=== PATIENT | female | born 2000 | race Hispanic/Latino ===

== ENCOUNTER 2023-04-22 05:31 | Observation (INO) | payer BC ==
[~2023-04-22] VITALS: Ht 154.9 cm; Wt 59.0 kg
[2023-04-22 05:41] VITALS: BP 107/72; PULSE 71; RESP 20
[2023-04-22] MEDS: LACTATED RINGERS 1000ML IV SCH ×3 (06:55→08:21)
[2023-04-22] MEDS ORDERED: TERBUTALINE SULFATE VIAL 1MG/ML SQ SCH (07:00)
[2023-04-22 07:01] LABS: APPEARANCE,URINE CLEAR (CLEAR); BILIRUBIN,URINE NEGATIVE (NEGATIVE); GLUCOSE, URINE (UA) NEGATIVE (NEGATIVE); KETONES,URINE NEGATIVE (NEGATIVE); LEUKOCYTE ESTERASE ,URINE 250 Leu/uL (NEGATIVE); NITRATE,URINE NEGATIVE (NEGATIVE); OCCULT BLOOD,URINE NEGATIVE (NEGATIVE); PROTEIN,URINE 20 mg/dL (NEGATIVE); UROBILINOGEN,URINE 0.2 mg/dL (0.2-1.0)
[2023-04-22] MEDS: TERBUTALINE SULFATE VIAL 1MG/ML SQ ONE ×2 (07:04→07:05)
[2023-04-22 07:12] LABS: ADD UA MICROSCOPIC YES; COLOR,URINE YELLOW (YELLOW)
[2023-04-22 07:14] LABS: BACTERIA,URINE RARE /HPF (None Seen); MUCUS,URINE RARE LPF (None Seen); RBC,URINE 0-1 /HPF (0-1); SQUAMOUS EPITHELIAL CELL,UR FEW /HPF (0-2)
== END 2023-04-22 09:00 | disposition home or self-care (01) ==
LOC: EDH 05:31 → LDH 05:32
PROVIDERS: ADMIT Obstetrics & Gynecology; ATTEND Obstetrics & Gynecology
DX: O62.9 Abnormality of forces of labor, unspecified (principal); Z3A.34 34 weeks gestation of pregnancy
CPT/HCPCS: 96372; 96360; 87077; 87088; 87186; 81001; G0378 ×3; G0379; J3105

== ENCOUNTER 2023-05-12 15:23 | Observation (INO) | payer BC ==
[2023-05-12 16:15] VITALS: BP 124/75; PULSE 80; RESP 18
[2023-05-12] MEDS ORDERED: 0.9%NACL 1000ML 1,000 ML IV SCH (17:00)
[2023-05-12] MEDS ORDERED: AZITHROMYCIN 250 MG TABLET PO ONE ×2 (17:00→18:30)
[2023-05-12 17:27] LABS: BASOPHILS # (AUTO) 0.02 K/uL (0.00-0.20); BASOPHILS % (AUTO) 0.3 % (0.0-5.0); HEMATOCRIT 22.1 % (36-48); IMMATURE GRANULOCYTE ABSOLUTE 0.09 K/uL (0-1); LYMPHOCYTES # (AUTO) 1.6 K/uL (1.0-4.8); LYMPHOCYTES % (AUTO) 22.7 % (21.0-51.0); MEAN CORPUSCULAR HEMOGLOBIN 20.3 pg (27.0-33.0); MEAN CORPUSCULAR HGB CONC 29.4 g/dL (32.0-36.0); MEAN CORPUSCULAR VOLUME 69.1 fL (79-99); MONOCYTES # (AUTO) 0.7 K/uL (0.1-1.0); MONOCYTES % (AUTO) 9.2 % (3.0-13.0); NEUTROPHILS # (AUTO) 4.7 K/uL (1.8-7.7); NEUTROPHILS % (AUTO) 66.5 % (40.0-77.0); NUCLEATED RED BLOOD CELLS 3.7 % (0.0-0.19); PLATELET COUNT (AUTO) 323 K/uL (130-400); RED CELL DISTRIBUTION WIDTH 18.1 % (11.0-15.5)
[2023-05-12 19:23] VITALS: BP 103/58; PULSE 62; RESP 20
[2023-05-12 19:42] VITALS: BP 111/75; PULSE 77; RESP 20
[2023-05-12 19:57] VITALS: BP 113/78; PULSE 71; RESP 20
[2023-05-12] MEDS ORDERED: PREN1TAB80 PO (20:10)
[2023-05-12] MEDS: TERBUTALINE SULFATE VIAL 1MG/ML SQ PRN ×2 (20:16→20:58)
[2023-05-12 23:15] VITALS: BP 112/78; PULSE 88; RESP 20
[2023-05-12 23:53] VITALS: BP 119/73; PULSE 82; RESP 20
[2023-05-13 00:16] VITALS: BP 119/66; PULSE 81; RESP 20
[2023-05-13 00:31] VITALS: BP 117/66; PULSE 75; RESP 20
[2023-05-13 03:17] VITALS: BP 120/62; PULSE 58; RESP 20
[2023-05-13 05:46] LABS: HEMATOCRIT 26.7 % (36-48)
[2023-05-13 07:42] VITALS: BP 108/57; PULSE 75; RESP 18
== END 2023-05-13 09:50 | disposition home or self-care (01) ==
LOC: WSH 15:23 → LDH 15:23 → UNDOADMOB 15:23
PROVIDERS: ADMIT Obstetrics & Gynecology; ATTEND Obstetrics & Gynecology
DX: O99.013 Anemia complicating pregnancy, third trimester (principal); D64.9 Anemia, unspecified; Z3A.37 37 weeks gestation of pregnancy
CPT/HCPCS: 96372; 96360; 96361 ×3; 36430 ×2; 85025; 86850; 86900; 86901; 86923 ×2; 36415 ×2; 85014; 85018; G0378 ×11; P9016 ×2; J3105

== ENCOUNTER 2023-05-20 01:45 | Observation (INO) | payer BC ==
[~2023-05-20] VITALS: Ht 154.9 cm; Wt 61.7 kg
[~2023-05-20 01:45] MED LIST: PREN1TAB80 PO
[2023-05-20 01:47] VITALS: BP 128/82; PULSE 79; RESP 18
[2023-05-20] MEDS ORDERED: LACTATED RINGERS 1000ML IV SCH (03:30)
[2023-05-20 03:49] LABS: APPEARANCE,URINE CLEAR (CLEAR); BILIRUBIN,URINE NEGATIVE (NEGATIVE); COLOR,URINE YELLOW (YELLOW); GLUCOSE, URINE (UA) NEGATIVE (NEGATIVE); KETONES,URINE NEGATIVE (NEGATIVE); LEUKOCYTE ESTERASE ,URINE 250 Leu/uL (NEGATIVE); NITRATE,URINE NEGATIVE (NEGATIVE); OCCULT BLOOD,URINE NEGATIVE (NEGATIVE); PH,URINE 6.5 (5.0-8.0); PROTEIN,URINE 70 mg/dL (NEGATIVE)
[2023-05-20 03:53] LABS: ADD UA MICROSCOPIC YES
[2023-05-20 04:08] LABS: HEMATOCRIT 29.3 % (36-48); MEAN CORPUSCULAR HEMOGLOBIN 22.6 pg (27.0-33.0); MEAN CORPUSCULAR HGB CONC 31.1 g/dL (32.0-36.0); MEAN CORPUSCULAR VOLUME 72.9 fL (79-99); PLATELET COUNT (AUTO) 300 K/uL (130-400); RED BLOOD CELL COUNT(AUTO) 4.02 MIL/uL (4.00-5.50); RED CELL DISTRIBUTION WIDTH 21.2 % (11.0-15.5); WHITE BLOOD COUNT (AUTO) 7.4 K/uL (4.8-10.8)
[2023-05-20 04:08] LABS: MUCUS,URINE FEW LPF (None Seen); SQUAMOUS EPITHELIAL CELL,UR MOD /HPF (0-2)
== END 2023-05-20 08:10 | disposition home or self-care (01) ==
LOC: EDH 01:45 → LDH 01:46
PROVIDERS: ADMIT Obstetrics & Gynecology; ATTEND Obstetrics & Gynecology
DX: O62.9 Abnormality of forces of labor, unspecified (principal); Z3A.38 38 weeks gestation of pregnancy; Z79.899 Other long term (current) drug therapy
CPT/HCPCS: 36415; 81001; 85027; 87088; 96360; 96361; G0378; J7120